=== PATIENT | female | born 1965 | race Caucasian/White ===

== ENCOUNTER 2019-06-02 08:30 | Outpatient (CLI) | payer OTHER ==
[~2019-06-02] VITALS: Ht 152.4 cm; Wt 53.2 kg
[2019-06-02 09:19] VITALS: BP 104/59; PULSE 61; TEMP 98.3
[2019-06-02] MEDS ORDERED: NEURONTIN300 MG/CAP PO (09:24)
[2019-06-02] MEDS ORDERED: SUBOXONE 8 MG-21 TAB SL (09:26)
[2019-06-02] MEDS ORDERED: TOPAMAX 100MG100 M1 PO (09:27)
[2019-06-02] MEDS ORDERED: TYLENOL 500MG500 MG PO (09:28)
[2019-06-02] MEDS ORDERED: PROZAC40 MG PO (09:28)
[2019-06-02] MEDS ORDERED: ADVIL200 MG PO (09:29)
--- NOTE | 2019-06-02 09:40 | NUR ---
Pt to procedure,report to Celine Manning.
[2019-06-02 11:09] VITALS: BP 94/69; PULSE 81
[2019-06-02 11:15] VITALS: BP 108/66; PULSE 66
[2019-06-02 11:25] VITALS: BP 113/66; PULSE 65
--- NOTE | 2019-06-02 12:09 | NUR ---
Discharge instructions given to pt.pt verbalizes understanding.INT removed,catheter tip intact.Pt escorted out by thisnurse.
== END 2019-06-02 15:17 | disposition home or self-care (01) ==
LOC: COL.CAR 08:30
DX: R42 Dizziness and giddiness (principal); Z79.82 Long term (current) use of aspirin; Z88.0 Allergy status to penicillin